=== PATIENT | female | born 1980 | race Caucasian/White ===

== ENCOUNTER 2018-09-20 19:01 | Emergency (ER) | payer MEDICAID, OTHER ==
[~2018-09-20] VITALS: Ht 177.8 cm; Wt 83.2 kg
[~2018-09-20 19:01] MED LIST: OXYC-307 PO
[2018-09-20] MEDS ORDERED: MAALOX/HYOSCYAMINE/LIDOCAINE 45 ML BTL PO ONE (20:00)
[2018-09-20] MEDS ORDERED: FAMOTIDINE 20 MG/2 ML IVP ONE (20:00)
[2018-09-20] MEDS ORDERED: SODIUM CHLORIDE FLUSH 10ML SYR IVF ONE (20:00)
[2018-09-20] MEDS ORDERED: SODIUM CHLORIDE 0.9% 1,000ML IVBOLUS ONE (20:00)
[2018-09-20] MEDS ORDERED: ONDANSETRON 2MG/ML, 2ML IVPush ONE (20:00)
[2018-09-20] MEDS ORDERED: ONDANSETRON 2MG/ML, 2ML ONE (20:06)
[2018-09-20] MEDS ORDERED: FAMOTIDINE 20 MG/2 ML ONE (20:07)
[2018-09-20] MEDS ORDERED: MAALOX/HYOSCYAMINE/LIDOCAINE 45 ML BTL ONE ×2 (20:07)
[2018-09-20 20:09] LABS: BASOPHILS # (AUTO) 0.03 x10^3/uL (0-0.1); BASOPHILS % (AUTO) 0 % (0-1); EOSINOPHILS % (AUTO) 0 % (1-7); LYMPHOCYTES # (AUTO) 0.99 x10^3/uL (1-3.4); LYMPHOCYTES % (AUTO) 8 % (22-44); MD NO; MEAN CORPUSCULAR HEMOGLOBIN 31.9 pg (27.0-34.8); MEAN CORPUSCULAR HGB CONC 33.9 g/dL (32.4-35.8); MEAN CORPUSCULAR VOLUME 94.3 fL (80-100); MEAN PLATELET VOLUME 7.5 fL (7.4-10.4); MONOCYTES # (AUTO) 1.06 x10^3/uL (0.2-0.8); MONOCYTES % (AUTO) 8 % (2-9); NEUTROPHILS # (AUTO) 10.92 x10^3/uL (1.8-6.8); NEUTROPHILS % (AUTO) 84 % (42-75); PLATELET COUNT 368 x10^3/uL (130-400); RED BLOOD COUNT 4.95 x10^6/uL (3.82-5.3); RED CELL DISTRIBUTION WIDTH 13.8 % (9.6-15.2)
[2018-09-20 20:16] LABS: ALANINE AMINOTRANSFERASE 45 U/L (12-78); ALBUMIN 4.3 g/dL (3.4-5.0); ANION GAP 11 mmol/L (5-15); CALCIUM 9.2 mg/dL (8.5-10.1); CHLORIDE 102 mmol/L (98-107); CREATININE 1.01 mg/dL (0.55-1.02)
--- NOTE | 2018-09-20 20:16 | NUR ---
IV PLACED, MEDS AND IVF BOLUS GIVEN PER ERP ORDER. PT ABLE TO DRINK GI COCKTAIL. PT UPDATED ON POC, AWARE OF NEED FOR UA. URINE CUP PROVIDED, PT TO PUT BODY MAN LIGHT WHEN ABLE TO GET URINE.
[2018-09-20 20:21] LABS: ALKALINE PHOSPHATASE 59 U/L (45-117); BILIRUBIN,TOTAL 1.1 mg/dL (0.2-1.0); TOTAL PROTEIN 8.2 g/dL (6.4-8.2)
--- NOTE | 2018-09-20 20:43 | NUR ---
ROUNDED ON PT, PT STATES STILL CAN'T URINATE AT THIS TIME. PT'S WRIST BENT, ONLY HALF OF IVF BOLUS GIVEN. PT ENCOURAGED TO KEEP WRIST STRAIGHT TO ALLOW IVF TO INFUSE BETTER. PT STATES SHE VOMITED GI COCKTAIL AND ABD PAIN WORSE FOLLOWING. ERP NOTIFIED. CALL LIGHT WITHIN REACH.
[2018-09-20 21:47] LABS: MICROSCOPIC INDICATED
[2018-09-20] MEDS ORDERED: PROMETHAZINE 25 MG/ML, 1ML IM ONE (21:55)
[2018-09-20 21:59] LABS: CULTURE INDICATED? NO
[2018-09-20] MEDS ORDERED: PROMETHAZINE 25 MG/ML, 1ML ONE (22:03)
--- NOTE | 2018-09-20 22:23 | NUR ---
PT MEDICATED FOR NAUSEA AND GIVEN WATER FOR PO CHALLENGE. VSS AND WILL CONT TO MONITOR.
[2018-09-20] MEDS ORDERED: HYDROcodone/APAP 5/325 TABLET PO STA (22:51)
[2018-09-20] MEDS ORDERED: MORPHINE SULFATE 4 MG/ML, 1ML ONE (23:26)
[2018-09-20] MEDS ORDERED: MORPHINE SULFATE 4 MG/ML, 1ML IVPush PRN (23:30)
--- NOTE | 2018-09-20 23:34 | NUR ---
PT MEDICATED FOR PAIN PER EMAR
--- NOTE | 2018-09-20 23:47 | NUR ---
Patient/Caregiver given discharge instructions and they have confirmed that they understand the instructions. Patient ambulatory with steady gait.
[2018-09-20 23:48] VITALS: BP 113/61
== END 2018-09-20 23:50 | disposition home or self-care (01) ==
LOC: ED 19:28
DX: K29.00 Acute gastritis without bleeding (principal)
CPT/HCPCS: 36415; 80053; 81001; 83690; 84703; 85025; 93005; 96361; 96372; 96374; 96375; 99283; J2405; J2550; J3490; J7030